=== PATIENT | female | born 1980 | race Caucasian/White ===

== ENCOUNTER 2018-09-25 05:26 | Inpatient (IN) | payer MEDICARE ==
--- NOTE | 2018-09-25 08:38 | RAD ---
5 VIEWS FROM SHUNT SERIES: Date: 09/25/18 INDICATION: History of seizure and concern for shunt malfunction. COMPARISON: CT of the brain dated 09/24/18. FINDINGS: The visualized shunt course extending from the right posterior mastoid region and along the right asp ect of the neck, traversing the anterior midline chest and projecting into the lower abdomen and pelv is with tip coiled into the region of the upper mid abdomen, is intact. The visualized lungs are dafne r. The bowel gas pattern is unobstructed. No acute osseous abnormality is evident. IMPRESSION: The visualized shunt course is intact without overt evidence of complication. POS: BH
[2018-09-25] MEDS ORDERED: Ondansetron ODT 4 MG TAB SL PRN (08:51)
[2018-09-25] MEDS ORDERED: Ondansetron PF 4 MG/2 ML Vial IVP PRN (08:51)
[2018-09-25] MEDS ORDERED: Lorazepam 2 MG/ML VIAL SLOW IVP PRN (08:51)
[2018-09-25] MEDS: levETIRAcetam 500 MG TAB PO SCH ×2 (12:36→20:28)
[2018-09-25] MEDS ORDERED: Acetaminophen 500 MG TAB ONE ×2 (13:53→13:54)
[2018-09-25] MEDS: Acetaminophen 500 MG TAB PO PRN ×2 (13:55→20:28)
--- NOTE | 2018-09-25 15:20 | HP ---
PRIMARY CARE PROVIDER: Hardy White. PRIMARY NEUROLOGIST: Dr. Grey Brooks in [place], [place]. CHIEF COMPLAINT: Seizures. HISTORY OF PRESENT ILLNESS: This is a 38-year-old female, who presents to [facility] Emergency Department after apparently sustaining two seizures at home of unknown duration. The patient with a long-standing history of seizure disorder, on chronic Keppra and phenytoin, who states she has been compliant with her medication regimen. The patient admits to ataxia after undergoing a brain tumor resection in 1998. The patient states she normally mobilizes with a wheelchair due to her ataxic gait. The patient denied any specific fever, chills, recent head trauma, or exposure history. The patient does states she has an indwelling ventriculostomy with shunt placed after her brain tumor resection in the . The patient does states she recently was diagnosed with urinary tract infection, taking a course of amoxicillin. The patient denies any current dysuria. Last menstrual period by patient report is currently on it. In the emergency room, the patient was noted with seizure activity, receiving lorazepam for a total of 3 mg intravenously. The patient also received Keppra [address] of the brain showed no acute intracranial process and patient has remained clinically stable in the emergency department. PAST MEDICAL HISTORY: 1. Brain tumor, status post resection. 2. Chronic seizures. 3. 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 4. Status post urinary tract infection. PAST SURGICAL HISTORY: Status post brain tumor resection in 1998, with ventriculostomy and shunt placement. CURRENT MEDICATIONS: 1. Keppra 500 mg p.o. b.i.d. 2. Depakote 500 mg p.o. at bedtime. ALLERGIES: DILANTIN. FAMILY HISTORY: No inheritable diseases per patient report. SOCIAL HISTORY: The patient resides in the [place], [place]. No current alcohol, tobacco, or illicit drug use. Mobilizes with a wheelchair. Functional remainder of activities of daily living. REVIEW OF SYSTEMS: CONSTITUTIONAL: Negative for weight loss or gain, ability to conduct usual activities. SKIN: Negative for rash, itching. EYES: Negative for double vision, pain. ENT/MOUTH: Negative for nose bleeding, neck stiffness, pain, tenderness. CARDIOVASCULAR: Negative for palpitations, dyspnea on exertion, orthopnea. RESPIRATORY: Negative for shortness of breath, wheezing, cough, hemoptysis, fever or night sweats. GASTROINTESTINAL: Negative for poor appetite, abdominal pain, heartburn, nausea, vomiting, constipation, or diarrhea. GENITOURINARY: Negative for urgency, frequency, dysuria, nocturia. MUSCULOSKELETAL: Negative for pain, swelling. NEUROLOGIC/PSYCHIATRIC: Negative for anxiety, depression. ALLERGY/IMMUNOLOGIC: Negative for skin rash, bleeding tendency. Otherwise negative except as stated per HPI. PHYSICAL EXAMINATION: VITAL SIGNS: On admission, blood pressure 130/88, pulse 103, respiratory rate 18, temperature 98.5 degrees Fahrenheit, O2 saturation 95% on room air. GENERAL APPEARANCE: This is a 38-year-old female, alert and responsive with mild dysarthria and no acute distress. HEENT: Pupils are equal, round, and reactive to light and accommodation. Extraocular muscles are intact. No scleral icterus. No conjunctival injection. Nares patent. OP is clear. Teeth in good repair. NECK: Supple. No cervical adenopathy. No thyromegaly. No carotid bruits. No JVD appreciated. Cervical spine with full active and passive range of motion. No meningeal signs noted. CHEST: Lungs are clear to auscultation bilaterally. CARDIOVASCULAR: S1 and S2 with tachycardia. No murmur, rub, or gallop appreciated. ABDOMEN: Rounded, soft, nontender, and nondistended. Bowel sounds are positive in all 4 quadrants. There is no hepatosplenomegaly. No abdominal bruits. No rebound or guarding appreciated. EXTREMITIES: Warm and dry with fair turgor. No clubbing, cyanosis, or asymmetric edema appreciated. Pulses are palpable distally at the dorsalis pedis, posterior tibial, and popliteal arteries bilaterally. Capillary refill less than 2 seconds. NEUROLOGIC: Cranial nerves 2 through 12 are grossly intact. Initial Gal[place] coma scale 15. Not observed ambulatory during this exam. PERTINENT LAB AND X-RAY FINDINGS: Complete metabolic profile within normal limits. TSH 0.71. Serum beta-hCG negative. Urine drug screen showed a phenytoin level less than 1.8, positive benzodiazepines. Urinalysis negative. CBC within normal limits. CT of the brain without contrast dated 09/24/2018, showed a ventriculostomy shunt in place. CT of the cervical spine dated 09/24/2018 showed no acute fracture dislocation. ASSESSMENT AND PLAN: 1. Recurrent seizures. The patient will be observed on the stroke unit. We will continue Keppra 1000 mg p.o. b.i.d. Resume home Depakote 500 mg p.o. at bedtime. Obtain EEG study and consult Neurology Service for further evaluation. General seizure precautions. Ativan 2 mg IV q.15 minutes p.r.n. breakthrough seizures. 2. Brain tumor status post resection with DIFFUSION FURNACE OPERATOR shunt, stable currently. Shuntogram performed with final interpretation pending. No current evidence to suggest hydrocephalus on CT imaging. 3. 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 PT evaluation for functional assessment. General fall risk precautions. 4. Urinary tract infection, stable currently. Appears urinary tract infection has resolved after treatment. 5. Prophylaxis. SCDs while in bed. General seizure precautions. PT evaluation pending. 6. Code status is full. Surrogate medical decision maker not identified. Job ID: [id number]
--- NOTE | 2018-09-25 16:07 | EEG ---
Referring Physician: Nataliia GALVEZ EEG # [id number] TEST TYPE: ROUTINE PORTABLE INPATIENT REPORT: AN EEG USING THE INTERNATIONAL TEN-TWENTY SYSTEM OF ELECTRODE PLACEMENT WAS PERFORMED. The waking background is a 9-10 hertz alpha frequency. The patient remained awake throughout the study. Hyperventilation and photic stimulation were unremarkable. No epileptiform features were seen. IMPRESSION: NORMAL AWAKE EEG. Custom Grinder: KARI Commissary Officer: [email or web address] LAFLEUR
[2018-09-25 18:47] VITALS: BMI 21.7
[2018-09-26] MEDS: Acetaminophen 500 MG TAB PO PRN ×3 (05:29→20:07)
[2018-09-26 06:13] LABS: Anion Gap 12 mmol/L (10-20); BUN (Urea Nitrogen) 10 mg/dL (7.0-18.7); Calc. Creatinine Clearance 121 mL/min (70-130); Calcium 8.4 mg/dL (7.8-10.44); Carbon Dioxide 24 mmol/L (22-29); Chloride 108 mmol/L (98-107); Estimated GFR-MDRD Greater than 90; Glucose 76 mg/dL (70-105); Magnesium 2.3 mg/dL (1.6-2.6); Potassium 3.8 mmol/L (3.5-5.1); Sodium 140 mmol/L (136-145)
[2018-09-26 06:20] LABS: Band 1 % (5-11); Hemoglobin 13.2 g/dL (12.0-16.0); Lymphocytes 41 % (21-51); MDiff Complete? YES; Mean Corpuscular HGB CONC 33.6 g/dL (32.0-36.0); Mean Corpuscular Volume 98.3 fL (78.0-98.0); Mean Platelet Volume 7.2 fL (7.4-10.4); Monocytes 12 % (0-10); Neutrophil 46 % (42-75); Platelet Count 274 thou/uL (130-400); Platelet Morphology Comment Appears Adequate; RBC Distribution Width 11.2 % (11.5-14.5); White Blood Cell (WBC) Count 5.2 thou/uL (4.8-10.8)
[2018-09-26] MEDS: levETIRAcetam 500 MG TAB PO SCH ×2 (09:26→20:07)
[2018-09-26 10:59] LABS: BHCG - Serum Negative (NEGATIVE); Pregs Control Background? CLEAR/WHITE (CLR/WHITE); Pregs Control Bar Appear? YES (CONTROL BAR)
[2018-09-26] MEDS ORDERED: Divalproex Sodium DR 500 MG TAB PO SCH ×2 (12:30→21:00)
--- NOTE | 2018-09-26 14:43 | PDOC.PN ---
- Subjective Encounter Start Date: 09/26/18 Encounter Start Time: 14:42 Subjective: feels better but does not remember much about last evening -: Fiance in the room and care updated - Objective Resuscitation Status - Order Detail: 09/25/18 08:45 Resuscitation Status Routine Resuscitation Status: FULL: Full Resuscitation MAR Reviewed: Yes Vital Signs & Weight: Vital Signs (12 hours) Temp Pulse Resp BP BP Pulse Ox 09/26/18 11:41 98.1 F 94 18 143/81 H 96 09/26/18 07:54 98.3 F 92 18 123/76 96 09/26/18 04:00 98.7 F 86 18 129/80 97 Weight Weight 135 lb I&O: 09/25/18 09/26/18 09/27/18 06:59 06:59 06:59 Intake Total 240 Balance 240 Result Diagrams: 09/26/18 05:06 09/26/18 05:06 Phys Exam - Physical Examination Constitutional: NAD HEENT: PERRLA, moist MMs, sclera anicteric, oral pharynx no lesions Neck: no nodes, no JVD, supple, full ROM Respiratory: no wheezing, no rales, no rhonchi, clear to auscultation bilateral Cardiovascular: RRR, no significant murmur Gastrointestinal: soft, non-tender, no distention, positive bowel sounds Musculoskeletal: no edema, pulses present Neurological: non-focal, normal sensation, moves all 4 limbs Psychiatric: normal affect, A&O x 3 slow but appropriate Skin: no rash Dx/Plan (1) Breakthrough seizure Code(s): G40.919 - EPILEPSY, UNSP, INTRACTABLE, WITHOUT STATUS EPILEPTICUS Status: Acute (2) H/O brain tumor Code(s): Z87.898 - PERSONAL HISTORY OF OTHER SPECIFIED CONDITIONS Status: Acute (3) Seizure disorder Code(s): G40.909 - EPILEPSY, UNSP, NOT INTRACTABLE, WITHOUT STATUS EPILEPTICUS Status: Chronic - Plan plan discussed w/ family, PT/OT, DVT proph w/SCDs cont keppra. restart Valproic acid.EEG Normal -: Shuntogram shows NL functioning shunt -: HD stable.PRN ativan -: awaiting final Neurology recs.[email or web address] PATEL home later today -: Follows w OP neuro in [place], tX * . Review of Systems - Review of Systems Constitutional: weakness ENT: negative: Ear Pain, Ear Discharge, Nose Pain, Nose Discharge, Nose Congestion, Mouth Pain, Mouth Swelling, Throat Pain, Throat Swelling, Other Respiratory: negative: Cough, Dry, Shortness of Breath, Hemoptysis, SOB with Excertion, Pleuritic Pain, Sputum, Wheezing Cardiovascular: negative: chest pain, palpitations, orthopnea, paroxysmal nocturnal dyspnea, edema, light headedness, other Gastrointestinal: negative: Nausea, Vomiting, Abdominal Pain, Diarrhea, Constipation, Melena, Hematochezia, Other Genitourinary: negative: Dysuria, Frequency, Incontinence, Hematuria, Retention , Other Musculoskeletal: negative: Neck Pain, Shoulder Pain, Arm Pain, Back Pain, Hand Pain, Leg Pain, Foot Pain, Other Neurological: negative: Weakness, Numbness, Incoordination, Change in Speech, Confusion, Seizures, Other - Medications/Allergies Allergies/Adverse Reactions: Allergies Allergy/AdvReac Type Severity Reaction Status Date / Time phenytoin [From Dilantin] Allergy Verified 09/25/18 10:46 Medications: Current Medications Acetaminophen (Tylenol) 1,000 mg PO Q6H PRN PRN Reason: Mild Pain (1-3) Last Admin: 09/26/18 12:39 Dose: 1,000 mg Levetiracetam (Keppra) 1,000 mg PO BID [facility] Last Admin: 09/26/18 09:26 Dose: 1,000 mg Lorazepam (Ativan) 2 mg SLOW IVP Q15MIN PRN PRN Reason: Seizures Ondansetron HCl (Zofran Odt) 4 mg SL Q6H PRN PRN Reason: Nausea/Vomiting Ondansetron HCl (Zofran) 4 mg IVP Q6H PRN PRN Reason: Nausea/Vomiting Sodium Chloride (Flush - Normal Saline) 10 ml IVF Q12HR TERESITA Sodium Chloride (Flush - Normal Saline) 10 ml IVF PRN PRN PRN Reason: Saline Flush
--- NOTE | 2018-09-26 17:42 | PDOC.EVN ---
Event Note - Event Note Event Note: Discussed between Neurology and NS .Pt will need MRI to r/o shunt malfunction. Will need to stay in house overnight.
--- NOTE | 2018-09-26 18:17 | CON ---
DATE OF CONSULTATION: 09/26/2018 CONSULTING PHYSICIAN: Hospitalist Service. IMPRESSION: Breakthrough seizures, possibly secondary to over shunting. PLAN: 1. Increase Keppra to 1500 mg twice a day. 2. Continue Depakote 500 mg nightly. 3. Neurosurgical opinion on shunt function. HISTORY OF PRESENT ILLNESS: Ms. Ortiz is a 38-year-old white female with a past history of a cerebellar astrocytoma, status post craniotomy and subsequent shunting. She has been followed by a neurologist and neurosurgeon in the [facility]. She recently moved to [place] with her boyfriend. She apparently started having repetitive seizures and was brought into [place] ER for evaluation. She was held there for a bit after increased dose of medication was undertaken. She was subsequently transferred here. She reports that she has been having chronic headaches for several months. She has had chronic ataxia and is wheelchair bound. She also is complaining of double vision. She had last seizure last night. She had a CT scan of the brain done, which showed ventricular contraction to the point that they were almost invisible. Her lab work was otherwise unremarkable. PAST MEDICAL HISTORY: As noted above. ALLERGIES: DILANTIN. MEDICATIONS: 1. Keppra 1000 mg twice a day. 2. Depakote 500 mg a day. SOCIAL HISTORY: No tobacco or alcohol use. FAMILY HISTORY: Noncontributory. REVIEW OF SYSTEMS: A 10-system review of systems are otherwise unremarkable. PHYSICAL EXAMINATION: GENERAL: She is a well-nourished, middle-aged woman, in no distress. VITAL SIGNS: Stable. She has been afebrile. HEENT: Pupils are equal. Conjunctivae are clear. Oropharynx is clear. NECK: Supple. No lymphadenopathy. EXTREMITIES: No cyanosis, clubbing, or edema. NEUROLOGIC: She was alert and cooperative. Her speech had a slightly dysarthric quality. 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 Motor exam showed good antigravity strength in all four extremities. There was dysmetria in both the upper and lower extremities. Sensation was intact to touch. No abnormal movements were seen. Gait was not testable given the patient's wheelchair-bound. IMAGING: Reviewed. 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 Her CT suggests the prospect that her shunt needs to be adjusted. I will continue with Surgery's opinion and be happy to follow up with her as an outpatient. Job ID: [id number]
--- NOTE | 2018-09-27 00:53 | CON ---
DATE OF CONSULTATION: This is Suri Limon PA-C dictating a report for Alberto Schrader MD. ATTENDING PHYSICIAN: Alberto Schrader MD HISTORY OF PRESENT ILLNESS: The patient is a 38-year-old female with a past medical history of cerebellar astrocytoma, status post resection with TECHNOLOGY APPLICATIONS ENGINEER shunting at 18 years of age, who presented to the emergency department on 09/25/2018, for increased seizure activity. The patient reports that she has had seizure disorder since surgery at 18 years old. She is followed by neurologist and a neurosurgeon in the [facility], but recently relocated to [place]. The patient reports over the last week, she has increased frequency of her seizure episodes. She contacted a friend who sent police for well check and found the patient actively seizing. She was brought to the ER for further evaluation in [place] and subsequently transferred to [facility] for further management. During her admission here, her seizures are now being controlled with adjustments of her medications. She has had some increased headaches over the past week and some intermittent blurred vision as well. She has chronic ataxia and is primarily wheelchair-bound. She also has chronic speech changes and these are unchanged. I am visiting with the patient the bedside. She reports she is feeling back at her baseline. CT head was done, which shows no evidence of ventriculomegaly or any other acute abnormalities. Normal shuntogram. PAST MEDICAL HISTORY: History of cerebellar astrocytoma, status post resection, seizure disorder, and TECHNOLOGY APPLICATIONS ENGINEER shunt. PAST SURGICAL HISTORY: Cerebellar astrocytoma resection in 1998 with TECHNOLOGY APPLICATIONS ENGINEER shunt replacement and TECHNOLOGY APPLICATIONS ENGINEER shunt revision in October of 2017. SOCIAL HISTORY: The patient lives at home with her fiancee. She does not smoke , drink, or use any drugs. ALLERGIES: SHE IS ALLERGIC TO DILANTIN. FAMILY HISTORY: Noncontributory. REVIEW OF SYSTEMS: Per HPI. PHYSICAL EXAMINATION: VITAL SIGNS: Her temperature is 99.3, heart rate is 92, respiration rate is 16. The patient is 95% on room air, BP is 112/86. HEAD AND EYES: Head is normocephalic and atraumatic. Pupils are equal and reactive. Conjunctivae are clear. She does have some lateral nystagmus. NECK: Nontender to palpation. No meningismus or nuchal rigidity. ENT: Oral mucosa is pink, intact, and moist. CARDIOVASCULAR: Regular rate and rhythm. RESPIRATORY: Symmetric chest expansion. No evidence of dyspnea. MUSCULOSKELETAL: Free active range of motion of all extremities. No focal motor weakness. NEUROLOGIC: She is A and O x4. Her speech is dysarthric. She has 5/5 strength throughout. Dysmetria is present in bilateral upper and lower extremities. I did not assess the patient's gait. ASSESSMENT AND PLAN: This is a 38-year-old female with a history of prior astrocytoma resection in 1998 with subsequent TECHNOLOGY APPLICATIONS ENGINEER shunt placement, who presented for increasing seizure activity. Since her admission, her seizures are now well controlled. Her friend at bedside she appears to be back at her baseline. Her noncontrast CT shows no evidence of ventriculomegaly or other acute abnormalities at this time. Neurology was concerned about possible low pressure abnormalities. I discussed patient's presentation, exam, and imaging with Dr. Schrader. Considering her return to baseline and control of seizures we feel that the patient could be discharged and further workup can be done on outpatient basis. MRI was originally ordered, but I will DC this order and we will plan to arrange this on outpatient basis. Please reach out to Neurosurgery for additional questions or concerns. Job ID: [id number] [facility]
[2018-09-27] MEDS ORDERED: Bisacodyl 10 MG SUPP PR PRN (00:58)
[2018-09-27] MEDS: Senokot S 8.6-50 MG TAB PO SCH ×2 (07:54→21:18)
[2018-09-27] MEDS: levETIRAcetam 500 MG TAB PO SCH ×2 (07:55→21:17)
[2018-09-27] MEDS ORDERED: Divalproex Sodium DR 500 MG TAB PO SCH (12:45)
--- NOTE | 2018-09-27 16:56 | PDOC.EVN ---
Event Note - Event Note Event Note: Pt seen and discussed w PA . had another seizure last night and woke up in puddle of urine. feels tired and exhausted this morning Discussed w Neurology Dr. regalado-will increase and monitor Not safe for DC home. will change to Inpt status tried to contact her neuroSx Dr. supa Brooks but he doesn't work at his old office anymore. No answer at new number.Will try again tomorrow.Pt notified.S rest per Note by Ramu.
[2018-09-27] MEDS: Acetaminophen 500 MG TAB PO PRN (17:21)
--- NOTE | 2018-09-27 19:52 | PRG ---
DATE OF SERVICE: 09/27/2018 SUBJECTIVE: Ms. Ortiz is a 38-year-old female with past medical history significant for cerebellar astrocytoma, status post resection with LEATHER CLEANER shunting at 18 years of age, and known seizure disorder, who presented to the ER department on September 25 with increased seizure activity. She has been seen in conjunction with Neurosurgery, who do not recommending any surgical intervention at this time. Her shuntogram showed no abnormalities. She has been seen in consultation with Neurology as well, who did recommend increasing her Keppra dose. Unfortunately, last night, the patient suffered a breakthrough seizure episode with associated loss of bladder function. The patient complains of feeling fatigued and tired this morning. She is notably tearful and is emotional about having continued breakthrough seizures. Otherwise, she has no physical complaints to me today. She denies any chest pain or shortness of breath. She denies any palpitations. She denies any nausea or vomiting. OBJECTIVE: VITAL SIGNS: Pulse is 91, O2 saturation 96% on room air, respirations 16, blood pressure is 113/77, and the patient is afebrile. GENERAL: The patient is sitting up in bed. She is notably emotional, but does calm down during my interview. She is alert, awake, and oriented and answering questions appropriately. NECK: No lymphadenopathy. No JVD. CV: S1 and S2. Regular rate and rhythm. No appreciable murmurs, rubs, or gallops. LUNGS: Regular respiratory rate and pattern. Clear to auscultation bilaterally. ABDOMEN: Soft. Positive bowel sounds. Nontender. SKIN: Warm and dry. No rashes. EXTREMITIES: No lower extremity pitting edema. NEUROLOGIC: Cranial nerves 2 through 12 are grossly intact. LABORATORY DATA: On September 26, hemoglobin 13.2, hematocrit 39.3, white blood cell count 5.2, and platelet 274. Sodium 140, potassium 3.8, chloride 108, creatinine 0.61, GFR greater than 90, and magnesium was 2.3. ASSESSMENT: 1. Known seizure disorder with continued breakthrough seizure activity. 2. Status post astrocytoma resection in 1998 with subsequent LEATHER CLEANER shunt placement, shuntogram normal in this admission, awake EEG normal. PLAN: Given the patient's continued breakthrough seizures, she is not a safe discharge at this time. Per Neurology, we will increase the patient's Depakote DR to 500 mg b.i.d., which she is currently taking just one time a day. She will continue her Keppra 1500 mg b.i.d. We will obtain a valproic acid level in the morning. At this time, we will continue to optimize her antiseizure medications. From Neurosurgery standpoint, there is no surgical intervention needed at this time given normal results of shuntogram. Care discussed with Dr. Terry, who agrees with the above. The patient meets inpatient criteria at this time. Job ID: [id number] [facility]
[2018-09-27] MEDS: Divalproex Sodium DR 500 MG TAB PO SCH (21:17)
[2018-09-28] MEDS: levETIRAcetam 500 MG TAB PO SCH ×2 (10:46→21:19)
[2018-09-28] MEDS: Senokot S 8.6-50 MG TAB PO SCH ×2 (10:46→21:20)
[2018-09-28] MEDS: Acetaminophen 500 MG TAB PO PRN ×2 (10:47→17:15)
[2018-09-28] MEDS: Divalproex Sodium DR 500 MG TAB PO SCH ×2 (10:47→21:19)
--- NOTE | 2018-09-28 13:57 | PDOC.PN ---
- Subjective Encounter Start Date: 09/28/18 Encounter Start Time: 13:56 Subjective: feels better but still has episodes of confusion,double vision & speech -: is slow at times -: no muscle weakness - Objective Resuscitation Status - Order Detail: 09/25/18 08:45 Resuscitation Status Routine Resuscitation Status: FULL: Full Resuscitation MAR Reviewed: Yes Vital Signs & Weight: Vital Signs (12 hours) Temp Pulse Pulse Pulse Resp BP BP 09/28/18 11:53 98.7 F 98 16 09/28/18 11:38 98 98 115/81 114/77 09/28/18 08:00 98.1 F 93 16 09/28/18 04:00 98.7 F 97 18 BP Pulse Ox 09/28/18 11:53 120/75 95 09/28/18 11:38 09/28/18 08:00 102/68 95 09/28/18 04:00 108/75 97 Weight Weight 135 lb I&O: 09/27/18 09/28/18 09/29/18 06:59 06:59 06:59 Intake Total 940 824 Balance 940 824 Result Diagrams: 09/26/18 05:06 09/26/18 05:06 Additional Labs: Laboratory Tests 09/28/18 06:24 Valproic Acid 50.9 Phys Exam - Physical Examination Constitutional: NAD HEENT: PERRLA, moist MMs, sclera anicteric, oral pharynx no lesions Neck: no nodes, no JVD, supple, full ROM Respiratory: no wheezing, no rales, no rhonchi, clear to auscultation bilateral Cardiovascular: RRR, no significant murmur Gastrointestinal: soft, non-tender, no distention, positive bowel sounds Musculoskeletal: no edema, pulses present Neurological: non-focal, normal sensation, moves all 4 limbs Psychiatric: normal affect, A&O x 3 Skin: no rash Dx/Plan (1) Breakthrough seizure Code(s): G40.919 - EPILEPSY, UNSP, INTRACTABLE, WITHOUT STATUS EPILEPTICUS Status: Acute (2) H/O brain tumor Code(s): Z87.898 - PERSONAL HISTORY OF OTHER SPECIFIED CONDITIONS Status: Acute (3) Seizure disorder Code(s): G40.909 - EPILEPSY, UNSP, NOT INTRACTABLE, WITHOUT STATUS EPILEPTICUS Status: Chronic - Plan DVT proph w/SCDs no more seizures. cont increased dose of depakote & Keppra -: MRI brain as persistant symptoms of diplopia,confusion -: may DC home later if MRI unremarkable for anything acute -: op f/u w Neurology * . Review of Systems - Review of Systems Constitutional: negative: fever, chills, sweats, weakness, malaise, other ENT: negative: Ear Pain, Ear Discharge, Nose Pain, Nose Discharge, Nose Congestion, Mouth Pain, Mouth Swelling, Throat Pain, Throat Swelling, Other Respiratory: negative: Cough, Dry, Shortness of Breath, Hemoptysis, SOB with Excertion, Pleuritic Pain, Sputum, Wheezing Cardiovascular: negative: chest pain, palpitations, orthopnea, paroxysmal nocturnal dyspnea, edema, light headedness, other Gastrointestinal: negative: Nausea, Vomiting, Abdominal Pain, Diarrhea, Constipation, Melena, Hematochezia, Other Genitourinary: negative: Dysuria, Frequency, Incontinence, Hematuria, Retention , Other Musculoskeletal: negative: Neck Pain, Shoulder Pain, Arm Pain, Back Pain, Hand Pain, Leg Pain, Foot Pain, Other Skin: negative: Rash, Lesions, Dutch, Bruising, Other Neurological: Change in Speech, Confusion - Medications/Allergies Allergies/Adverse Reactions: Allergies Allergy/AdvReac Type Severity Reaction Status Date / Time phenytoin [From Dilantin] Allergy Verified 09/25/18 10:46 Medications: Current Medications Acetaminophen (Tylenol) 1,000 mg PO Q6H PRN PRN Reason: Mild Pain (1-3) Last Admin: 09/28/18 10:47 Dose: 1,000 mg Bisacodyl (Dulcolax) 10 mg NV DAILYPRN PRN PRN Reason: Constipation Divalproex Sodium (Depakote) 500 mg PO BID [facility] Last Admin: 09/28/18 10:47 Dose: 500 mg Levetiracetam (Keppra) 1,500 mg PO BID [facility] Last Admin: 09/28/18 10:46 Dose: 1,500 mg Lorazepam (Ativan) 2 mg SLOW IVP Q15MIN PRN PRN Reason: Seizures Ondansetron HCl (Zofran Odt) 4 mg SL Q6H PRN PRN Reason: Nausea/Vomiting Ondansetron HCl (Zofran) 4 mg IVP Q6H PRN PRN Reason: Nausea/Vomiting Senna/Docusate Sodium (Senokot S) 2 tab PO BID [facility] Last Admin: 09/28/18 10:46 Dose: 2 tab Sodium Chloride (Flush - Normal Saline) 10 ml IVF Q12HR [facility] Last Admin: 09/28/18 10:47 Dose: 10 ml Sodium Chloride (Flush - Normal Saline) 10 ml IVF PRN PRN PRN Reason: Saline Flush
[2018-09-29] MEDS: Senokot S 8.6-50 MG TAB PO SCH (08:14)
[2018-09-29] MEDS: Divalproex Sodium DR 500 MG TAB PO SCH (08:14)
[2018-09-29] MEDS: levETIRAcetam 500 MG TAB PO SCH (08:14)
[2018-09-29 11:52] VITALS: BP 117/77; TEMP 97.6
--- NOTE | 2018-09-30 12:26 | DIS ---
DATE OF ADMISSION: 09/27/2018 DATE OF DISCHARGE: 09/29/2018 CONDITION AT THE TIME OF DISCHARGE: Stable. DISCHARGE DISPOSITION: Home. DISCHARGE DIAGNOSES: 1. Breakthrough seizures. 2. History of seizure disorder. 3. History of cerebral astrocytoma removal. 4. Ventriculoperitoneal shunt. DISCHARGE MEDICATIONS: New medication; her dose of Keppra and Depakote are increased from 1000 mg p.o. b.i.d. to 1500 mg p.o. b.i.d. for Keppra and Depakote from 500 mg daily to 500 mg p.o. b.i.d. IN-HOUSE CONSULTATION: Neurology, Dr. Jose Kim and Neurosurgery, Dr. Schrader and Ms. Plattory Braxton, for Dr. Schrader. PROCEDURES DONE IN THE HOSPITAL: 1. Shuntogram on 09/25/2018, which shows the visualized portion of the shunt being intact without overt evidence of complication. It is seen extending from the right posterior mastoid region and along the right aspect of the neck traversing the anterior midline chest and projecting into the lower abdomen and pelvis with tip coiled into the region of the upper mid abdomen. 2. EEG, which showed normal awake EEG. HISTORY OF PRESENTING ILLNESS: Ms. Ortiz is a very pleasant 38-year-old female with past medical history of astrocytoma removal and history of long-standing seizure disorder, who presented to the emergency room after apparently sustaining two seizures at home of unknown duration. Her tumor resection was done in 1998. She mobilizes with a wheelchair due to ataxia. In the ER, the patient was noted with seizure activity and required lorazepam IV. Her CT scan of the brain showed no acute process and a shuntogram was done, which did not show any abnormality of the shunt itself. She was admitted to Stroke floor with diagnosis of breakthrough recurrent seizures. Please see admission history and physical dictated by Dr. Barajas, from the date of this admission, 09/25/2018. HOSPITAL COURSE: Neurosurgery and Neurology were consulted, and Dr. Kim and Dr. Schrader's PA, Maciej Suri saw the patient. Dr. Kim recommended increasing the Keppra, which was done. Unfortunately, the patient had one more breakthrough seizure in the hospital despite increased dose of Keppra and continuation of home dose of Depakote. Her Depakote dose was increased and she was further monitored. She had no more seizure activity. Neurosurgery was consulted and they had no new recommendations at this time. I had a detailed discussion with Ms. Suri Limon, for Dr. Schrader and they will like to follow the patient in the outpatient setting with outpatient MRI. As of this morning, the patient is feeling back to her baseline and is seizure-free for more than 24 to 36 hours, and is eager to go home. She is being cared by her fiance and neighbors. She denies any discharge needs. She was seen and examined prior to discharge. PHYSICAL EXAMINATION: VITAL SIGNS: This morning, temperature 97.6, pulse 97, respirations 17, saturating 98% on room air, blood pressure 117/77. GENERAL: No acute distress. Awake, alert, and oriented x3. CHEST: Clear to auscultation bilaterally. HEART: Rate and rhythm is regular. DISCHARGE PLAN: Discharge plan was discussed with the patient. She has followed up with Dr. Eric Trinh in [facility]. I tried to call him, but his office is changed and he no longer works there. The patient will call for the new number to get her records over. First, she will establish care with Neurology, Dr. Kim and Neurosurgery, Dr. Schrader, locally. She understands the plan and has resources to make the appointments. All new medication prescriptions were sent over to her pharmacy. Job ID: [id number]
== END 2018-09-29 13:36 | disposition home or self-care (01) | DRG 101 ==
LOC: ERS 05:26 → ERHOLD 06:22 → 2SE 18:33 → OBSVTOIN 09-27 16:02
PROVIDERS: ADMIT Internal Medicine; ATTEND Internal Medicine
DX: G40.919 Epilepsy, unspecified, intractable, without status epilepticus (principal); R27.0 Ataxia, unspecified; Z85.841 Personal history of malignant neoplasm of brain; Z88.8 Allergy status to other drugs, medicaments and biological substances; Z79.899 Other long term (current) drug therapy; Z98.2 Presence of cerebrospinal fluid drainage device; Z99.3 Dependence on wheelchair
CPT/HCPCS: 36415; 75809; 80048; 80164; 80185; 83735; 84703; 85007; 85027; 95816; 95819

== ENCOUNTER 2018-11-13 15:22 | Observation (INO) | payer MEDICARE, MEDICAID ==
[2018-11-13] MEDS ORDERED: Guaifenesin DM 100-10/5 ML UDCUP PO PRN (18:35)
[2018-11-13] MEDS ORDERED: Ondansetron PF 4 MG/2 ML Vial IVP PRN (18:35)
[2018-11-13] MEDS ORDERED: Acetaminophen 650 MG Suppository PR PRN (18:35)
[2018-11-13] MEDS ORDERED: Meclizine HCl 25 MG TAB PO PRN (18:35)
[2018-11-13] MEDS ORDERED: Senokot S 8.6-50 MG TAB PO PRN (18:35)
[2018-11-13] MEDS ORDERED: diphenhydrAMINE 50 MG/ML VIAL IVP PRN (18:35)
[2018-11-13] MEDS ORDERED: Acetaminophen 325 MG TAB PO PRN (18:35)
[2018-11-13] MEDS ORDERED: Metoclopramide HCl 10 MG/2 ML VIAL IVP PRN (18:35)
[2018-11-13] MEDS ORDERED: Ketorolac Tromethamine 30 MG/ML VIAL IVP PRN (18:35)
[2018-11-13 18:58] VITALS: BMI 21.9
--- NOTE | 2018-11-13 19:27 | HP ---
PRIMARY CARE PHYSICIAN: Yvonne Rivera MD CHIEF COMPLAINT: Headache, dizziness, nausea, and vomiting. HISTORY OF PRESENT ILLNESS: This is a 38-year-old white female with a remote history of cerebellar astrocytoma status post resection and subsequent shunting in 1998. She had no problems. The patient was stable post shunt with ataxia requiring a wheelchair, but no nausea or vomiting. No double vision. No dizziness. Until about a year ago, she started getting fairly severe symptoms at that time. She was seen by her neurologist in the [place], where she used to live and eventually had a shunt replacement, which seemed to improve the symptoms; however, they started coming back about July of this year. The patient was seen last month with increasingly frequent seizures. It was concern for possible shunt malfunction at that time. Dr. Kim and Dr. Schrader were consulted. Imaging was stable and she was controlled with increased Keppra and Depakote. She was then discharged to follow up with Dr. Schrader and Dr. Kim. However, she has not able to get appointments until November. The patient reports that for the last 5 days, she has had increasing symptoms of worsening more frequent headaches, nausea and vomiting about 3 to 4 times in the last couple days, worsening ataxia and double vision. She was seen in [place], had a significant headache at that time, resolved with morphine. She had an abnormal shunt series and an unchanged CT of the brain. She was transferred here for possible shunt malfunction. The patient reports these symptoms are similar to what she had a year ago when she had her shunt replaced. PAST MEDICAL HISTORY: 1. 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 2. Chronic seizures. 3. Ataxia. 4. Recurrent urinary tract infections. PAST SURGICAL HISTORY: 1. Brain tumor resection in 1998 with ventriculostomy and shunt placement. 2. Shunt replacement in 2018. SOCIAL HISTORY: The patient is engaged. She mobilizes with a wheelchair. She is functional in her activities of daily living. No tobacco, alcohol, or illicit drug use. FAMILY HISTORY: Father with prostate cancer and paternal grandmother with breast cancer. ALLERGIES: DILANTIN CAUSES HIVES. CURRENT MEDICATIONS: 1. Keppra 1500 mg 2 times a day. 2. Depakote 1000 mg 2 times a day. 3. Gabapentin 100 mg at night. REVIEW OF SYSTEMS: CONSTITUTIONAL: Occasional chills. No fevers. EYES: See HPI. ENT: No congestion drainage or sore throat. CARDIOVASCULAR: No chest pain. No palpitations or racing heart. PULMONARY: No coughing or wheezing. She does get occasional difficulty breathing due to her ataxia, but this is not anything new. GASTROINTESTINAL: See HPI. No abdominal pain. No hematemesis. No diarrhea or constipation. GENITOURINARY: No dysuria or hematuria. MUSCULOSKELETAL: No new muscle aches or joint pains. SKIN: No rashes or other lesions she has noted. NEUROLOGIC: See HPI. PHYSICAL EXAMINATION: VITAL SIGNS: Blood pressure 116/62, pulse 76, respirations 18, temperature 98.0, and O2 saturation 97% on room air. GENERAL: This is a well-developed, well-nourished white female, in no acute distress. HEENT: Pupils are equal, round, and reactive to light. She does have some dysconjugate gaze, but extraocular movements appear intact bilaterally. Oropharynx clear without lesions, erythema, or exudate. NECK: Supple. No lymphadenopathy. No thyroid nodules or enlargement. HEART: Regular rate and rhythm. No murmurs, rubs, or gallops. LUNGS: Clear to auscultation bilaterally. No wheezes, crackles, or rhonchi. ABDOMEN: Soft and nontender to palpation. Normoactive bowel sounds. No hepatosplenomegaly or other masses. EXTREMITIES: No clubbing, cyanosis, or edema. SKIN: No rashes or lesions noted. NEUROLOGIC: She has no facial droop. She has intact strength and sensation in all extremities. Deep tendon reflexes are 2+ in all extremities. She does have some ataxia on rapid alternating movements, on [id number], and on [id number] bilaterally above a moderate level. PSYCHIATRIC: Alert and oriented x3. Normal mood and affect. LABORATORY DATA: 1. CBC within normal limits. Complete metabolic panel is within normal limits. TSH was normal. Serum test negative. Shuntogram done in [place] [facility] shows a right-sided ventriculoperitoneal shunt tubing that is intact. 2. CT of the brain shows postoperative changes, stable from previous CT. No evidence of shunt malfunction. No acute intracranial abnormalities. ASSESSMENT AND PLAN: 1. Nausea, vomiting, headaches, and double vision, concerning for a possible shunt malfunction. Imaging studies are normal at this time. We will put the patient in the hospital and consult Neurology and Neurosurgery to re-evaluate her. There is some concern about her not be able to get a normal MRI due to her shunt. We will defer to Neurosurgery and Neurology for best imaging studies. 2. Headaches. Possible either shunt related versus migraines. We will try metoclopramide 10 mg IV q.6 hours along with 25 of Benadryl and Toradol IV to control the pain. 3. Nausea and vomiting. We will give Zofran as needed. 4. Gastrointestinal prophylaxis. Put the patient on Pepcid twice a day. 5. Deep venous thrombosis prophylaxis. Put the patient on sequential compression devices while in bed. 6. Code status. I did discuss this with the patient, she is a full code. Should she be incapacitated, she states she would like her fiancee to be her medical decision maker, his name is Elijah Thompson. They have not filled out any sort of medical power of artificial pearl maker paperwork. 7. Chronic seizure disorder. We will continue Yvon. Job ID: [id number]
[2018-11-13] MEDS: Famotidine 20 MG TAB PO SCH (20:17)
[2018-11-13] MEDS: Gabapentin 100 MG CAP PO SCH (20:17)
[2018-11-13] MEDS: levETIRAcetam 500 MG TAB PO SCH (20:17)
[2018-11-13] MEDS ORDERED: Divalproex Sodium DR 500 MG TAB PO SCH (21:00)
[2018-11-14 05:56] LABS: #Basophils 0.1 thou/uL (0.0-0.2); #Eosinphils 0.3 thou/uL (0.0-0.7); #Lymphocytes 2.9 thou/uL (1.20-3.40); #Monocytes 0.6 thou/uL (0.11-0.59); #Neutrophils 2.8 thou/uL (1.40-6.50); %Lymphocytes 43.7 % (21.0-51.0); %Monocytes 9.4 % (0.0-10.0); %Neutrophils 41.9 % (42.0-75.0); Hemoglobin 12.6 g/dL (12.0-16.0); Mean Corpuscular Hemoglobin 33.4 pg (27.0-31.0); Mean Corpuscular Volume 98.4 fL (78.0-98.0); Mean Platelet Volume 7.8 fL (7.4-10.4); Platelet Count 194 thou/uL (130-400); RBC Distribution Width 11.1 % (11.5-14.5); Red Blood Cell (RBC) Count 3.76 mill/uL (4.20-5.40); White Blood Cell (WBC) Count 6.6 thou/uL (4.8-10.8)
[2018-11-14 06:21] LABS: Anion Gap 11 mmol/L (10-20); BUN (Urea Nitrogen) 9 mg/dL (7.0-18.7); Calc. Creatinine Clearance 100 mL/min (70-130); Calcium 8.4 mg/dL (7.8-10.44); Carbon Dioxide 27 mmol/L (22-29); Chloride 105 mmol/L (98-107); Estimated GFR-MDRD 88; Glucose 81 mg/dL (70-105); Potassium 4.2 mmol/L (3.5-5.1); Sodium 139 mmol/L (136-145)
[2018-11-14] MEDS: Divalproex Sodium DR 500 MG TAB PO SCH ×2 (08:56→20:05)
[2018-11-14] MEDS: Famotidine 20 MG TAB PO SCH ×2 (08:56→20:05)
[2018-11-14] MEDS: levETIRAcetam 500 MG TAB PO SCH ×2 (08:56→20:05)
[2018-11-14] MEDS ORDERED: Divalproex Sodium DR 500 MG TAB PO SCH (09:00)
[2018-11-14] MEDS: HYDROcodone/Acetaminophen 5/325 mg Tablet PO PRN ×3 (10:51→23:56)
--- NOTE | 2018-11-14 12:58 | PDOC.PN ---
- Subjective Encounter Start Date: 11/14/18 Encounter Start Time: 12:56 Patient sitting up in bed, she reports nausea, vomiting improved but she is still with a headache on right side of head. She denies chest pain, shortness of breath and she reports ataxia is at baseline. She reports sunglasses help with headache. - Objective Resuscitation Status - Order Detail: 11/13/18 18:01 Resuscitation Status Routine Resuscitation Status: FULL: Full Resuscitation Discussed with: Patient MAR Reviewed: Yes Vital Signs & Weight: Vital Signs (12 hours) Temp Pulse Pulse Pulse Resp BP BP 11/14/18 12:00 97.8 F 86 16 11/14/18 10:40 95 94 109/60 109/61 11/14/18 07:40 97.9 F 83 16 11/14/18 04:00 97.8 F 83 19 BP Pulse Ox 11/14/18 12:00 105/62 96 11/14/18 10:40 11/14/18 07:40 115/65 96 11/14/18 04:00 94/52 L 98 Weight Weight 136 lb 1.003 oz I&O: 11/13/18 11/14/18 11/15/18 06:59 06:59 06:59 Intake Total 480 480 Balance 480 480 Result Diagrams: 11/14/18 05:10 11/14/18 05:10 Radiology Reviewed by me: Yes Phys Exam - Physical Examination Constitutional: NAD HEENT: moist MMs, oral pharynx no lesions Neck: supple Respiratory: no wheezing, no rales Cardiovascular: RRR, no significant murmur Gastrointestinal: soft, no distention, positive bowel sounds Musculoskeletal: pulses present Neurological: normal sensation, moves all 4 limbs Ataxia noted, but appears to be at baseline Lymphatic: no nodes Psychiatric: normal affect, A&O x 3 Skin: normal turgor, cap refill <2 seconds Dx/Plan (1) Hx of astrocytoma Code(s): Z85.841 - PERSONAL HISTORY OF MALIGNANT NEOPLASM OF BRAIN Status: Acute (2) History of brain shunt Code(s): Z98.2 - PRESENCE OF CEREBROSPINAL FLUID DRAINAGE DEVICE Status: Acute (3) Seizure disorder Code(s): G40.909 - EPILEPSY, UNSP, NOT INTRACTABLE, WITHOUT STATUS EPILEPTICUS Status: Chronic - Plan cont current plan of care, PT/OT * Obtain records from previous neurosurgery * Consults for neurology and neurosurgery placed, appreciate recommendations * Resume home medications including keppra, gabapentin and depakote * Symptomatic care * Continue PT/OT
[2018-11-14] MEDS: Ondansetron ODT 4 MG TAB PO PRN ×2 (13:52→20:05)
[2018-11-14] MEDS: Gabapentin 100 MG CAP PO SCH (20:05)
[2018-11-15] MEDS: Divalproex Sodium DR 500 MG TAB PO SCH (05:56)
[2018-11-15] MEDS: Dihydroergotamine Mesylate 1 MG/ML AMP SLOW IVP SCH ×2 (05:56→10:44)
[2018-11-15] MEDS: Metoclopramide HCl 10 MG/2 ML VIAL IVP SCH ×2 (05:56→10:44)
[2018-11-15] MEDS: Famotidine 20 MG TAB PO SCH (05:57)
[2018-11-15] MEDS: levETIRAcetam 500 MG TAB PO SCH (05:57)
--- NOTE | 2018-11-15 09:43 | MRI ---
BRAIN MRI WITH AND WITHOUT CONTRAST: HISTORY: Astrocytoma. UNDERCUTTER shunt evaluation. Headache. COMPARISON: None. CORRELATION: A noncontrast head CT 11/13/2018, 09/24/2018. FINDINGS: There is artifact presumed to be due to a metallic component along the right occipital region. Other campuzano, no hemorrhage on the axial gradient echo sequence. There is malacic and gliotic change involving the midline of the cerebellum, including the cerebellar vermis. There is gliosis along the course of a UNDERCUTTER shunt catheter, via the right frontal approach. Ventricular system does not appear to be dilated. Rather, the ventricular system is diminutive which may be due to over shunting. Correlate clinically. Central arterial flow voids are maintained. Absent restricted diffusion. No cerebral mass, mass effect, or midline shift. Brain volume is age appropriate. Cortical zayas-whi te matter differentiation is preserved. No evidence of pathologic enhancement of the supratentorial brain. Adequate aeration of the sinuses and mastoid air cells. IMPRESSION: 1. Diminutive ventricular system, similar to recent CT. Correlate clinically for over shunting. 2. Presumed postsurgical changes involving the cerebellum including the cerebellar vermis. There is no abnormal enhancement to suggest recurrent/residual tumor. Previous MRIs are not available for di rect comparison. POS: OFF
--- NOTE | 2018-11-15 10:09 | PRG ---
DATE OF SERVICE: 11/15/2018 SUBJECTIVE: The patient is a 38-year-old female known to us from prior evaluation for her recent increase in headaches and seizure activities during an inpatient visit in September 2018. She has a past medical history of prior astrocytoma with resection at approximately 18 years of age. Subsequently, she required a FIRE TRUCK DRIVER shunt, which was revised in 2018 by neurosurgeon in the [place]. She also has long history of seizure disorder, was evaluated by Neurology at her prior visit for increased frequency, and her medications were adjusted at that time. The patient reports she was doing better following that visit, but had increase in her headaches over the past week. She has sensitivity to light with associated nausea and vomiting. She has baseline ataxia and requires a wheelchair which is unchanged. We evaluated her with an MRI during this inpatient visit, and there appears to be no recurrence of her lesion, but we do feel that she maybe draining too effectively as a cause of her symptoms. Her previous shunt setting was at 0.5 according to old records. On my exam today, she is awake and alert. She does have some photophobia and she prefers a dark room or sunglasses. OBJECTIVE: VITAL SIGNS: Stable. HEENT: Her head is normocephalic and atraumatic. The shunt is located along the right scalp. Eyes; pupils are equal and reactive. She does have some lateral nystagmus. CARDIOVASCULAR: Regular rate and rhythm. RESPIRATORY: Breathing comfortably, symmetric chest expansion. MUSCULOSKELETAL: Free active range of motion of all extremities. No focal motor weakness. NEUROLOGIC: She is A and O x4. She does have some dysarthria of her speech, which is unchanged from her baseline. She has 5/5 strength throughout. She has dysmetria of the bilateral upper extremities. ASSESSMENT AND PLAN: We feel that the patient's current symptoms may be related to her shunt setting at 0.5, and I have adjusted this today at the bedside to shunt setting of 1.0. Neurology is also following the patient and managing her seizure disorder as well as assisting with headache management. Once her headaches are controlled, we feel that she could be dismissed to home. We will plan to follow up with her in approximately 2 weeks and have appt already arranged on December 02 to reassess her symptoms as well as check her shunt setting at that time. Will check a non contrast CT head prior to this visit. Job ID: [id number] CIARRA
[2018-11-15 12:36] VITALS: BP 115/59; TEMP 98.5
--- NOTE | 2018-11-15 18:26 | PRG ---
DATE OF SERVICE: 11/15/2018 SUBJECTIVE: The patient is a 38-year-old woman, who has been hospitalized twice over the last month for symptoms of headache, nausea, and vomiting. 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 On her last hospitalization, she had also had an increase in seizure frequency, which seems now to be better controlled. Since her hospitalization, she has done better with improved nausea and vomiting with still persistent increased headache. Imaging was reviewed including an MRI scan that shows very small ventricles and no other specific abnormalities. There is no evidence of residual recurrent tumor and no meningeal enhancement. She also had a shunt series on several occasions, which was unremarkable. IMPRESSION AND PLAN: There is nothing to suggest shunt malfunction. In fact, given the small size of the ventricles, it is quite possible that she is suffering from over shunting and as such, we are reprogramming her shunt to a setting of 1.0. We did obtain her old records from her previous shunting and found that she had a programmable strata valve at a setting of 0.5. I believe the patient can now be safely discharged and I will plan to see her again in 2 weeks in the outpatient setting with a head CT to determine whether further shunt adjustments may be necessary. Job ID: [id number]
[2018-11-15] MEDS ORDERED: Nortriptyline HCl 25 MG CAP PO SCH (21:00)
== END 2018-11-15 14:17 | disposition home or self-care (01) ==
LOC: ERS 15:22 → 2SE 17:20
PROVIDERS: ADMIT Emergency Medicine; ATTEND Emergency Medicine
DX: R27.0 Ataxia, unspecified (principal); R11.2 Nausea with vomiting, unspecified; G40.909 Epilepsy, unspecified, not intractable, without status epilepticus; N39.0 Urinary tract infection, site not specified; Z79.899 Other long term (current) drug therapy; Z85.841 Personal history of malignant neoplasm of brain; Z88.1 Allergy status to other antibiotic agents; Z88.8 Allergy status to other drugs, medicaments and biological substances; Z99.3 Dependence on wheelchair
CPT/HCPCS: 70553; 80048; 85025; 96374; 96375 ×2; 96376; 97139 ×2; 97530; 99285; G0378 ×2; 36415; J1110; J1200; J2765; Q0162

== ENCOUNTER 2019-10-17 06:40 | Emergency (ER) | payer MEDICARE, MEDICAID, OTHER ==
[2019-10-17] MEDS ORDERED: Ondansetron PF 4 MG/2 ML Vial ONE (07:17)
[2019-10-17] MEDS ORDERED: Morphine 4 MG/ML VIAL ONE (07:17)
[2019-10-17 07:30] LABS: #Eosinphils 0.1 thou/uL (0.0-0.7); #Lymphocytes 2.3 thou/uL (1.20-3.40); #Monocytes 0.7 thou/uL (0.11-0.59); #Neutrophils 3.5 thou/uL (1.40-6.50); %Basophils 0.6 % (0.0-1.0); %Eosinophils 1.7 % (0.0-10.0); %Lymphocytes 34.7 % (21.0-51.0); Hemoglobin 13.2 g/dL (12.0-16.0); Mean Corpuscular HGB CONC 34.6 g/dL (32.0-36.0); Mean Corpuscular Hemoglobin 33.7 pg (27.0-31.0); Mean Corpuscular Volume 97.3 fL (78.0-98.0); Mean Platelet Volume 7.1 fL (7.4-10.4); Platelet Count 284 thou/uL (130-400); RBC Distribution Width 10.9 % (11.5-14.5); Red Blood Cell (RBC) Count 3.91 mill/uL (4.20-5.40); White Blood Cell (WBC) Count 6.6 thou/uL (4.8-10.8)
[2019-10-17 07:43] LABS: ALT (SGPT) 11 U/L (8-55); AST (SGOT) 12 U/L (5-34); Albumin 3.8 g/dL (3.5-5.0); Alkaline Phosphatase 74 U/L (40-110); Anion Gap 12 mmol/L (10-20); BUN (Urea Nitrogen) 12 mg/dL (7.0-18.7); Bilirubin, Total Less than 0.2 mg/dL (0.2-1.2); Calc. Creatinine Clearance 0 mL/min (70-130); Calcium 8.7 mg/dL (7.8-10.44); Carbon Dioxide 24 mmol/L (22-29); Chloride 106 mmol/L (98-107); Estimated GFR-MDRD Greater than 90; Globulin 2.4 g/dL (2.4-3.5); Glucose 93 mg/dL (70-105); Potassium 4.1 mmol/L (3.5-5.1); Protein, Total 6.2 g/dL (6.0-8.3); Sodium 138 mmol/L (136-145)
--- NOTE | 2019-10-17 08:11 | CT ---
CT BRAIN WITHOUT CONTRAST: HISTORY: Headache. COMPARISON: 08/04/2019. FINDINGS: Postop changes of occipital craniectomy are again seen. Malacic changes involving the cerebellar vadim mis are stable. The ventricular size is diminutive but stable. The right frontal ventriculostomy sh unt tubing is unchanged in position with stable associated encephalomalacia along the tract. No evidence of acute infarct, hemorrhage, midline shift, or abnormal extraaxial fluid collections is seen. No hydrocephalus is noted. No acute calvarium abnormalities are seen. The visualized paranas al sinuses are well aerated. IMPRESSION: Stable exam. No CT evidence of acute intracranial process. POS: [facility]
[2019-10-17] MEDS ORDERED: Ketorolac Tromethamine 30 MG/ML VIAL ONE (08:56)
[2019-10-17] MEDS ORDERED: Metoclopramide HCl 10 MG/2 ML VIAL ONE (08:56)
--- NOTE | 2019-10-17 09:06 | RAD ---
SHUNTOGRAM: HISTORY: Headache. COMPARISON: 02/27/2019. FINDINGS/IMPRESSION: AP lateral neck, AP chest, AP abdomen and pelvis were obtained to assess the shunt tubing. The ventriculoperitoneal shunt tubing is seen traversing the right side of the neck, right side of t he chest, and to the right side of the abdomen with traversing to the left in the pelvis and making i n a loop in the pelvis to re-enter the abdomen with tip in the right lower quadrant. There is a new focal discontinuity of the shunt tubing in the right side of the neck compared to the previous study of 02/27/2019. POS: [facility]
[2019-10-17 09:24] LABS: Bilirubin Negative (Negative); Blood, Urine Negative (Negative); Clarity Clear (Clear); Glucose, Urine (Dipstick) Normal (Negative); Leukocyte Negative Leu/uL (Negative); Nitrite Negative (Negative); Protein, Urine (Dipstick) Negative (Neg-Trace); Urobilinogen Normal mg/dL (Less than 2)
[2019-10-17 09:32] LABS: Pregnancy Test - Urine (BHCG) Negative (Negative); Pregu Control Background? CLEAR/WHITE (CLR/WHITE); Pregu Control Bar Appear? YES (CONTROL BAR); Specific Gravity 1.009 (1.002-1.036)
[2019-10-17 17:58] LABS: SARS-CoV-2 MS2 Positive; SARS-CoV-2 N Gene Negative; SARS-CoV-2 S Gene Negative; SARS-CoV-2 orf1ab Negative
== END 2019-10-17 10:43 | disposition home or self-care (01) ==
LOC: ERS 06:40
DX: R51 Headache (principal); Z20.828 Contact with and (suspected) exposure to other viral communicable diseases; R89.2 Abnormal level of other drugs, medicaments and biological substances in specimens from other organs, systems and tissues; F41.9 Anxiety disorder, unspecified; Z79.899 Other long term (current) drug therapy
CPT/HCPCS: 70450; 75809; 80053; 80164; 81003; 81025; 85025; 87081; 87430; 87633; 87804 ×2; 96365; 96375; 99284; U0002; 36415; 87635; J1885; J2270; J2405; J2765; U0003

== ENCOUNTER 2020-02-11 13:26 | Emergency (ER) | payer MEDICARE, MEDICAID ==
[2020-02-11] MEDS ORDERED: Ketorolac Tromethamine 30 MG/ML VIAL ONE (15:25)
[2020-02-11 15:36] LABS: #Basophils 0.1 thou/uL (0.0-0.2); #Lymphocytes 2.1 thou/uL (1.20-3.40); #Monocytes 0.6 thou/uL (0.11-0.59); #Neutrophils 3.9 thou/uL (1.40-6.50); %Basophils 0.9 % (0.0-1.0); %Eosinophils 0.5 % (0.0-10.0); %Lymphocytes 31.8 % (21.0-51.0); %Monocytes 9.3 % (0.0-10.0); %Neutrophils 57.6 % (42.0-75.0); Hemoglobin 13.9 g/dL (12.0-16.0); Mean Corpuscular HGB CONC 35.8 g/dL (32.0-36.0); Mean Corpuscular Hemoglobin 34.5 pg (27.0-31.0); Mean Corpuscular Volume 96.5 fL (78.0-98.0); Platelet Count 313 thou/uL (130-400); Red Blood Cell (RBC) Count 4.03 mill/uL (4.20-5.40); White Blood Cell (WBC) Count 6.7 thou/uL (4.8-10.8)
--- NOTE | 2020-02-11 15:46 | CT ---
CT Brain WO Con History: Fall. Trauma Comparison: CT brain 10/17/2019 Findings: Right changes frontal shunt catheter is similar. Ventricular size is very small. Prior subo ccipital decompression. Mild prominence of the cerebellar folia. Corpus callosum not well evaluated. No acute hemorrhage. No midline shift. No mass effect. Impression: Unchanged exam without acute posttraumatic intracranial sequela.
[2020-02-11 15:55] LABS: Bilirubin Negative (Negative); Blood, Urine Negative (Negative); Clarity Clear (Clear); Glucose, Urine (Dipstick) Normal (Negative); Ketone, Urine Trace mg/dL (Negative); Leukocyte Negative Leu/uL (Negative); Nitrite Negative (Negative); Protein, Urine (Dipstick) Negative (Neg-Trace); Specific Gravity, Urine 1.014 (1.002-1.036); Urobilinogen Normal mg/dL (Less than 2); pH, Urine 5.5 (5.0-9.0)
[2020-02-11 15:56] LABS: ALT (SGPT) 15 U/L (8-55); AST (SGOT) 15 U/L (5-34); Albumin 3.9 g/dL (3.5-5.0); Alkaline Phosphatase 86 U/L (40-110); Anion Gap 13 mmol/L (10-20); BUN (Urea Nitrogen) 11 mg/dL (7.0-18.7); Bilirubin, Total 0.3 mg/dL (0.2-1.2); Calc. Creatinine Clearance 0 mL/min (70-130); Calcium 8.5 mg/dL (7.8-10.44); Carbon Dioxide 26 mmol/L (22-29); Chloride 102 mmol/L (98-107); Estimated GFR-MDRD 79; Globulin 3.1 g/dL (2.4-3.5); Glucose 72 mg/dL (70-105); Potassium 3.7 mmol/L (3.5-5.1); Sodium 137 mmol/L (136-145)
--- NOTE | 2020-02-11 16:04 | RAD ---
XR Shoulder Rt 3 View STANDARD History: Fall Comparison: Humerus radiograph prior day Findings: No acute displaced fracture or malalignment. Shunt catheter projects over the right hemitho rax. Impression: No acute osseous abnormality.
--- NOTE | 2020-02-11 16:32 | CT ---
CT CERVICAL SPINE WITHOUT CONTRAST: Date: 02/11/2020 INDICATION: Fall with injury to neck. Neck pain. Comparison made to CT cervical spine dated 09/24/2018. FINDINGS: Prominent degenerative changes seen at C4-5, C5-6, and C6-7. Loss of disc space with anterior osteoph ytes are present at these levels. Slight wedging of C5 and C6 appears chronic. There is now a kyphoti c curvature of the cervical spine with apex at C5-6 which is new from the prior CT. There are postop changes involving the posterior occipital bone, which was noted on the prior study. There is no evidence of cervical spine fracture. IMPRESSION: Degenerative changes in the lower cervical spine are more pronounced with kyphotic curvature as noted above. No evidence of acute fracture. POS: [facility]
== END 2020-02-11 17:29 | disposition home or self-care (01) ==
LOC: ERS 13:26
DX: S09.90XA Unspecified injury of head, initial encounter (principal); S40.011A Contusion of right shoulder, initial encounter; M54.9 Dorsalgia, unspecified; M54.2 Cervicalgia; F41.9 Anxiety disorder, unspecified; G89.29 Other chronic pain; Z79.899 Other long term (current) drug therapy; W01.10XA Fall on same level from slipping, tripping and stumbling with subsequent striking against unspecified object, initial encounter
CPT/HCPCS: 36415; 70450; 72125; 80053; 81003; 85025; 96372; J1885